=== PATIENT | female | born 1945 | race Caucasian/White ===

== ENCOUNTER 2019-09-16 09:27 | Day surgery (SDC) | payer MEDICARE, BC ==
[2019-09-12 15:42] VITALS: BMI 26.1
[~2019-09-16 09:27] MED LIST: LACTATED RINGERS 1,000 ML IV SCH; LIDOCAINE 1% 20 ML VIAL (10MG/ML) FOR IV START INTRADERMA PRN
[2019-09-16 09:55] VITALS: TEMP 97.9
[2019-09-16] MEDS ORDERED: PROPOFOL 10 MG/ML 20 ML VIAL IV ONE (10:02)
[2019-09-16 10:33] VITALS: RESP 16
[2019-09-16] MEDS ORDERED: ONDANSETRON 4 MG/2 ML VIAL IVP ONE (11:10)
[2019-09-16 11:18] VITALS: BP 161/84; PULSE 62
--- NOTE | 2019-09-16 11:33 | P.PCN ---
Date of Procedure: 09/16/19 Description of Procedure: BRIEF HISTORY: 74-year-old female who presents for outpatient evaluation with colonoscopy due to a change in bowel habits. The patient reports that over the past few months she has been having altered bowel function passing only a small amounts of soft stool multiple times in the day. She denies any blood per rectum but does report problems with hemorrhoids stating that she has itching and pain as well as a sensation of incomplete evacuation in the anal region. PROCEDURE PERFORMED: Incomplete/aborted colonoscopy with biopsies. PREOPERATIVE DIAGNOSIS: Altered bowel function, no prior colonoscopy. ESTIMATED BLOOD LOSS: Minimal. IV sedation per Anesthesia. PROCEDURE: After informed consent was obtained, the patient, was brought into the endoscopy unit. IV sedation was administered by Anesthesia under continuous monitoring. Initially inspection of the anus revealed external hemorrhoids. Digital rectal examination was then attempted but could not be performed as the patient's anal canal was stenosed and firm. At this time the patient was used to pass a GF190 flexible endoscope through the stenosed anal canal and into the rectum. Retroflexion was performed in that it appeared that there was a lobulated anal mass of unknown etiology which was biopsied. The scope was then passed an additional 20-30 cm past the anal verge into the sigmoid colon with no other abnormalities seen. Scope was then withdrawn, and the patient tolerated the procedure well. IMPRESSION: Stenosed anal canal with thickened tissue surrounding anal orifice/anal mass which was biopsied. Study was limited due to stenosis and use of an EGD scope which was advanced to 30 cm past the anal verge. RECOMMENDATIONS: Findings of this examination were discussed with the patient and her . Await pathology from biopsies. Follow up in GI clinic next week. Would recommend MiraLAX therapy one to 2 times daily to keep bowel movements soft.
== END 2019-09-16 11:47 | disposition home or self-care (01) ==
LOC: ORWHC2ENDO 09:27
PROVIDERS: ATTEND Internal Medicine
DX: R19.4 Change in bowel habit (principal); K62.4 Stenosis of anus and rectum; Z87.891 Personal history of nicotine dependence; I10 Essential (primary) hypertension; Z98.42 Cataract extraction status, left eye; Z98.41 Cataract extraction status, right eye; Z97.2 Presence of dental prosthetic device (complete) (partial); Z79.899 Other long term (current) drug therapy
CPT/HCPCS: 88305; 45331; J2405; J2704; 45330; 45380